=== PATIENT | female | born 1995 | race Caucasian/White ===

== ENCOUNTER 2018-10-03 13:53 | Outpatient (CLI) | payer OTHER ==
--- NOTE | 2018-10-03 15:36 | ULT ---
THYROID ULTRASOUND: HISTORY: Thyroid nodule. FINDINGS: Rela-time imaging of the right and left lobes of the thyroid gland were performed. The right lobe me asures 1.1 x 1.8 x 4.5 and the left lobe 1.1 x 1.5 x 4.9 cm. There are tiny subcentimeter bilateral thyroid nodules. Most of these nodules are in the 5 to 9 mm range. There is 1 nodule in the more in ferior aspect of the right lobe which either represents adjacent nodules or in aggregate the nodule m easuring 1.3 cm in size. This should be followed up with a 6-month followup examination. IMPRESSION: Bilateral thyroid nodules. There is 1 somewhat more ill-defined area of nodularity either represent some nodules adjacent to each other or a single nodule which in aggregate size is 1.3 cm. I would re commend a 6-month followup thyroid ultrasound for assessment of this. POS: [facility]
== END 2018-10-03 13:54 | disposition home or self-care (01) ==
LOC: BICULT 13:53
PROVIDERS: ATTEND Obstetrics & Gynecology
DX: E07.9 Disorder of thyroid, unspecified (principal); E04.2 Nontoxic multinodular goiter
CPT/HCPCS: 76536